=== PATIENT | female | born 1950 | race American Indian/Alaskan Native ===

== ENCOUNTER 2017-06-28 08:20 | Emergency (ER) | payer MEDICARE ==
[2017-06-28 08:33] VITALS: BP 133/59
[2017-06-28] MEDS ORDERED: TORADOL IM ONE (08:45)
--- NOTE | 2017-06-28 08:45 | Emergency Department Report ---
ED Lower Extremity HPI - General Chief Complaint: Extremity Problem,Nontraumatic Stated Complaint: RIGHT KNEE PAIN Time Seen by Provider: 06/28/17 08:40 Source: patient Mode of arrival: Ambulatory Limitations: No Limitations - History of Present Illness Initial Comments: Patient here reports that she has right knee pain from going up and down stairs at [facility] yesterday. She says she has a history of right knee arthritis and since the weather has changed coupled with her going back and forth upstairs she has been having increasing pain and swelling. Pain is 7 out of 10 worse with walking and standing and better with resting. Denies any numbness or tingling to extremities. Denies any trauma to the knee. Patient has a history of arthritis and hypertension, gallbladder disease status post cholecystectomy and high cholesterol. She says she has been taking Tylenol arthritis but it does not help in her pain. She denies any fever or chills. Complaint: other (right knee pain and swelling) Onset/Timin -: days(s) Injury: Knee: Right (pain and swelling) Type of Injury: other (A she reports that she has arthritis and this is happened in the past during cold weather and overuse) Place: other (at [facility]) Severity scale (0 -10): 7 Improves With: immobilization, rest Worsens With: weight bearing, movement, palpation Context: walking, other (arthritis flareup) Associated Symptoms: snap/pop sensation, swelling, able to partially bear weight. denies: numbness, tingling Treatments Prior to Arrival: other (Tylenol arthritis) - Related Data Previous Rx's Medication Instructions Recorded Last Taken Type traMADol [Ultram] 50 mg PO Q6HR PRN 5 Days #20 tablet 06/28/17 Unknown Rx Allergies Allergy/AdvReac Type Severity Reaction Status Date / Time Penicillins AdvReac Unknown Unverified 05/25/14 10:51 ED Review of Systems ROS: Stated complaint: RIGHT KNEE PAIN Other details as noted in HPI Comment: All other systems reviewed and negative Constitutional: no symptoms reported Respiratory: no symptoms reported Cardiovascular: denies: chest pain, palpitations, dyspnea on exertion, edema, syncope, paroxysmal nocturnal dyspnea Gastrointestinal: denies: abdominal pain, nausea, vomiting Musculoskeletal: joint swelling, arthralgia. denies: back pain, myalgia Skin: denies: rash Neurological: abnormal gait (due to right knee pain and swelling). denies: headache, weakness, numbness, paresthesias ED Past Medical Hx - Past Medical History Previous Medical History?: Yes Hx Hypertension: Yes Hx Arthritis: Yes Additional medical history: high cholesterol - Surgical History Past Surgical History?: Yes Additional Surgical History: gallbladder remover. hysterectomy - Family History Family history: hypertension - Social History Smoking Status: Never Smoker Substance Use Type: None - Medications Home Medications: Home Medications Medication Instructions Recorded Confirmed Last Taken Type traMADol [Ultram] 50 mg PO Q6HR PRN 5 Days #20 tablet 06/28/17 Unknown Rx ED Physical Exam - General Limitations: No Limitations General appearance: alert, in no apparent distress - Head Head exam: Present: atraumatic, normocephalic, normal inspection - Eye Eye exam: Present: normal appearance, PERRL, EOMI Pupils: Present: normal accommodation - ENT ENT exam: Present: normal exam, normal orophraynx, mucous membranes moist - Neck Neck exam: Present: normal inspection, full ROM, other (plan tenderness). Absent: tenderness, meningismus, lymphadenopathy, thyromegaly - Respiratory Respiratory exam: Present: normal lung sounds bilaterally. Absent: respiratory distress, chest wall tenderness - Cardiovascular Cardiovascular Exam: Present: regular rate, normal rhythm, normal heart sounds - GI/Abdominal GI/Abdominal exam: Present: soft, normal bowel sounds. Absent: distended, tenderness, guarding, rebound, rigid - Extremities Exam Extremities exam: Present: tenderness, normal capillary refill, joint swelling, other (no clubbing or cyanosis. Positive pulses all extremities. No neurovascular compromise.). Absent: normal inspection, full ROM, pedal edema, calf tenderness - Expanded Lower Extremity Exam Right Hip exam: Present: normal inspection, full ROM, pelvic stability. Absent: tenderness, swelling, abrasion, laceration, ecchymosis, deformity, crepidus, dislocation, erythema, external rotation, internal rotation, shortening Upper Leg exam: Present: normal inspection, full ROM. Absent: tenderness, swelling, abrasion, laceration, ecchymosis, deformity, crepidus, dislocation Knee exam: Present: tenderness (right anterior knee), swelling (right anterior knee). Absent: normal inspection, full ROM (limited range of motion to right knee. Patient is able to flex her right knee but she is having difficulties with full extension due to pain.), abrasion, laceration, ecchymosis, deformity, crepidus, dislocation, erythema, effusion, pain w/ pronation/supination, posterior draw sign, pain/laxity with valgus, pain/laxity with varus, full knee extension Lower Leg exam: Present: normal inspection, full ROM. Absent: tenderness, swelling, abrasion, laceration, ecchymosis, deformity, crepidus, dislocation, erythema, palpable cord, Jeanna's sign Ankle exam: Present: normal inspection, full ROM. Absent: tenderness, swelling , abrasion, laceration, ecchymosis, deformity, crepidus, dislocation, erythema Foot/Toe exam: Present: normal inspection, full ROM. Absent: tenderness, swelling, abrasion, laceration, ecchymosis, deformity, crepidus, dislocation, erythema, amputation, puncture wound, foreign body, calcaneal tenderness, tenderness at base of 5th metatarsal, nail avulsion, subungual hematoma Neuro vascular tendon exam: Present: no vascular compromise, motor deficit ( limited range of motion to right knee due to swelling and pain. All other extremities are within normal limits without any motor deficit). Absent: pulse deficit, abnormal cap refill, sensory deficit, tendon deficit, extremity cold to touch, pallor, abnormal 2-point discrimination, decreased fine/light touch, foot drop, peroneal nerve deficit, significant pain with passive ROM of distal joint Gait: Positive: antalgic - Back Exam Back exam: Present: normal inspection, full ROM. Absent: tenderness, CVA tenderness (R), CVA tenderness (L), muscle spasm, paraspinal tenderness, vertebral tenderness, rash noted - Neurological Exam Neurological exam: Present: alert, oriented X3, abnormal gait (abnormal gait due to knee pain and swelling.), motor sensory deficit (decreased strength to right knee due to pain and swelling. Restricted movement to the right knee due to pain and swelling), reflexes normal - Psychiatric Psychiatric exam: Present: normal affect, normal mood - Skin Skin exam: Present: warm, dry, intact, normal color. Absent: rash ED Course Vital Signs 06/28/17 06/28/17 08:29 08:58 Temperature 98.3 F Pulse Rate 72 Respiratory 20 Rate Blood Pressure 133/59 O2 Sat by Pulse 99 Oximetry - Reevaluation(s) Reevaluation #1: 06/28/17 09:02 Is given Toradol 60 mg IM in the emergency room for right knee pain. Awaiting x -ray results Reevaluation #2: 06/28/17 10:21 X-ray report of right knee showed tricompartmental moderate to severe degenerative changes. Right knee pain is better. Patient able to ambulate but limited. - Orthopedic Splinting/Casting Injury #1 Side: right Lower Extremity Injury Location: knee Lower Extremity Immobilizer: Simeon wrap Additional Comments: Patient will good color, movement, sensation and temperature to right knee. No neurovascular compromise ED Lower Extremity MDM - Radiology Data Radiology results: report reviewed X-ray of right knee shows tricompartmental moderate to severe degenerative changes - Medical Decision Making ED course: She reports that she has increasing right knee pain after going up and down stairs at [facility] and that she heard a pop and reporting pain and swelling. Patient has baseline arthritis to her knees. Patient was given Toradol 60 mg IM in emergency room which relieved her pain. X-ray findings for tricompartment moderate to severe degenerative changes to right knee. Simeon wrap applied to right knee. She procedure note for details. I discussed results of x-ray and treatment plan the patient and told her she'll need to follow-up with orthopedic doctor regarding severe arthritis to her right knee. Patient discharged home with prescription for Ultram and to follow-up as discussed. Critical care attestation.: If time is entered above; I have spent that time in minutes in the direct care of this critically ill patient, excluding procedure time. ED Disposition Clinical Impression: Arthralgia of right knee Tricompartment degenerative joint disease of knee Qualifiers: Laterality: right Qualified Code(s): M17.11 - Unilateral primary osteoarthritis , right knee Disposition: DC-01 TO HOME OR SELFCARE Is pt being admited?: No Does the pt Need Aspirin: No Condition: Stable Instructions: Arthralgia (ED), Osteoarthritis (ED), Knee Pain (ED), Knee Exercises (GEN), RICE Therapy (ED) Additional Instructions: Please follow up with primary care as recommended Increase fluid intake Take medication as prescribed but please do not drive or operate heavy machinery while taking Ultram as this medication causes drowsiness Referred to discharge instruction in Rice therapy. These follow-up with orthopedic doctor as instructed. Prescriptions: traMADol [Ultram] 50 mg PO Q6HR PRN 5 Days #20 tablet PRN Reason: Pain Referrals: PRIMARY CAREMD [Primary Care Provider] - 2-3 Days MIRTHA MENDIOLA MD [Staff Physician] - 2-3 Days Forms: Work/School Release Form(ED)
[2017-06-28] MEDS ORDERED: VALIUM PO ONE (08:47)
--- NOTE | 2017-06-28 09:04 | XRay Report ---
Right knee 2 views: History: Right knee pain. Findings: Minimal medial lateral and patellofemoral compartment knee joint and be more pronounced in the patellofemoral compartment. Sclerotic articular surfaces with peripheral osteophytes suggestive of degenerative changes. No fracture. No joint effusion. Impression: Tricompartment moderate to severe degenerative changes.
== END 2017-06-28 10:34 | disposition home or self-care (01) ==
LOC: ED 08:20
DX: M17.11 Unilateral primary osteoarthritis, right knee (principal); I10 Essential (primary) hypertension; M19.90 Unspecified osteoarthritis, unspecified site; E78.00 Pure hypercholesterolemia, unspecified; Z88.0 Allergy status to penicillin; W18.49XA Other slipping, tripping and stumbling without falling, initial encounter; Y93.89 Activity, other specified; Y92.89 Other specified places as the place of occurrence of the external cause; Y99.8 Other external cause status
CPT/HCPCS: 73562; 96372; 99282; J1885